=== PATIENT | female | born 1985 | race Caucasian/White ===

== ENCOUNTER 2017-12-20 20:35 | Emergency (ER) | payer BC ==
[2017-12-20] MEDS ORDERED: AMOXICILLIN/POTASSIUM CLAV 875MG/125MG TABLET PO ONE (20:49)
[2017-12-20] MEDS ORDERED: IBUPROFEN 400 MG TABLET PO ONE (20:49)
--- NOTE | 2017-12-20 20:55 | Emergency Department Record ---
History of Present Illness - General Chief Complaint: Ankle/Foot Injury Stated Complaint: TOE INJURY Time Seen by Provider: 12/20/17 20:49 Source: Patient Mode of Arrival: Ambulatory Limitations: No limitations - History of Present Illness Initial Comments: 32 yo female presents to ED for evaluation of increased swelling and pain following injury 10 days ago. Patient reports that she "ran my big toe into the back of my 's boot" resulting in direct blow to the toe. Patient reports that she is concerned about possible infection following injury. Patient denies health problems at her baseline. MD Complaint: Foot injury Onset/Timin -: Days(s) Injury: Toes: Right Type of Injury: Blunt Place: Home Severity scale (1-10): 8 Improves With: Nothing Worsens With: Nothing Context: Walking Associated Symptoms: Swelling, Ambulatory - Related Data Home Medications Medication Instructions Recorded Confirmed Last Taken Sertraline HCl [Zoloft] 100 mg PO DAILY 12/20/17 12/20/17 Unknown Previous Rx's Medication Instructions Recorded Amoxicillin/Potassium Clav 1 tab PO BID #19 tab 12/20/17 [Augmentin 875-125 Tablet] Allergies Allergy/AdvReac Type Severity Reaction Status Date / Time No Known Drug Allergies Allergy Verified 11/01/16 17:27 Travel Screening - Travel/Exposure Within Last 30 Days Have you traveled within the last 30 days?: No - Travel/Exposure Within Last Year Have you traveled outside the [place] in the last year?: No - Additonal Travel Details Have you been exposed to anyone with a communicable illness?: No - Travel Symptoms Symptom Screening: None Review of Systems Constitutional: Denies: Chills, Fever, Malaise, Night sweats Eyes: Denies: Eye discharge, Eye pain ENT: Denies: Congestion, Ear pain, Epistaxis Respiratory: Denies: Cough, Dyspnea Cardiovascular: Denies: Chest pain, Dyspnea on exertion Endocrine: Denies: Fatigue, Heat or cold intolerance Gastrointestinal: Denies: Abdominal pain, Nausea, Vomiting Genitourinary: Denies: Incontinence, Retention Musculoskeletal: Reports: Arthralgia. Denies: Back pain, Gout Skin: Reports: Bruising. Denies: Change in color Neurological: Denies: Abnormal gait, Confusion, Headache, Seizure Psychiatric: Denies: Anxiety Hematological/Lymphatic: Denies: Anemia, Blood Clots Past Medical History - SOCIAL HISTORY Smoking Status: Former smoker Alcohol Use: None Drug Use: Heavy Drug Use Detail:: Marijuana - RESPIRATORY Hx Respiratory Disorders: No - CARDIOVASCULAR Hx Cardio Disorders: No - NEURO Hx Neuro Disorders: No - GI Hx GI Disorders: No - Hx Genitourinary Disorders: No - ENDOCRINE Hx Endocrine Disorders: No Hx Diabetes: Yes Comment:: gestational - MUSCULOSKELETAL Hx Musculoskeletal Disorders: No - PSYCH Hx Psych Problems: Yes Hx Depression: Yes - HEMATOLOGY/ONCOLOGY Hx Hematology/Oncology Disorders: No Family Medical History Any Significant Family History?: No Physical Exam - General General Appearance: Alert, Oriented x3, Cooperative, Mild distress Limitations: No limitations - Head Head exam: Atraumatic, Normocephalic, Normal inspection Head exam detail: negative: Abrasion, Contusion, Jiménez's sign, General tenderness, Hematoma, Laceration - Eye Eye exam: Normal appearance. negative: Conjunctival injection, Periorbital swelling, Periorbital tenderness, Scleral icterus - ENT Ear exam: negative: Auricular hematoma, Auricular trauma Nasal Exam: negative: Active bleeding, Discharge, Dried blood, Foreign body Mouth exam: negative: Drooling, Laceration, Muffled voice, Tongue elevation - Neck Neck exam: Normal inspection. negative: Meningismus, Tenderness - Respiratory Respiratory exam: Normal lung sounds bilaterally. negative: Rales, Respiratory distress, Rhonchi, Stridor - Cardiovascular Cardiovascular Exam: Regular rate, Normal rhythm, Normal heart sounds - GI/Abdominal GI/Abdominal exam: Soft. negative: Rebound, Rigid, Tenderness - Rectal Rectal exam: Deferred - exam: Deferred - Extremities Extremities exam: Tenderness, Other (STS to the tuft of the right great toe, mild ecchymosis below the nail, no deformity noted. Mild erythema to the tuft noted as well. No significant subungal hematoma noted. No abscess is noted to the tuft or nail-fold on examination.). negative: Calf tenderness, Pedal edema - Back Back exam: Denies: CVA tenderness (R), CVA tenderness (L) - Neurological Neurological exam: Alert, Normal gait, Oriented X3 - Psychiatric Psychiatric exam: Normal affect, Normal mood - Skin Skin exam: Erythema. negative: Abrasion Type of lesion: negative: abrasion Course Vital Signs 12/20/17 12/20/17 20:38 20:39 Temperature 98 F 98 F Pulse Rate [ 73 Pulse Ox Probe] Respiratory 16 16 Rate Blood Pressure 116/74 [Left Arm] Pulse Ox 100 100 - Reevaluation(s) Reevaluation #1: 12/20/17 21:35 Right great toe: Possible small avulsion fracture of the plantar surface at the proximal distal phalanx Patient was updated on her radiology result, will place in post-op shoe with instructions to call her janitor helper (Dr. Mariee) for an appointment in 3- 5 days as directed. Patient appears stable for discharge with treatment for probable toe infection with Augmentin as well. Disposition Disposition: Discharge Clinical Impression: Toe infection, Avulsion fracture Disposition: Home, Self-Care Condition: (2) Stable Instructions: [facility] (ED) Additional Instructions: Return to ED if your symptoms worsen or if you have any concerns. Augmentin as directed. Follow-up with Dr. Mariee in 3-5 days as directed. Post-op shoe as directed. Prescriptions: Amoxicillin/Potassium Clav [Augmentin 875-125 Tablet] 1 tab PO BID #19 tab Forms: Patient Portal Access Time of Disposition: 21:35 Quality - Quality Measures Quality Measures: N/A - Blood Pressure Screening Does Patient Have Any of the Following: No Blood Pressure Classification: Normal BP Reading Systolic Measurement: 116 Diastolic Measurement: 74 Screening for High Blood Pressure: < Normal BP, F/U Not Required > [G8783]
--- NOTE | 2017-12-21 14:59 | RADIOLOGY REPORT ---
EXAM: RIGHT GREAT TOE HISTORY: PATIENT SLID INTO HER 'S BOOT WHILE RUNNING ACROSS THE FLOOR TEN DAYS AGO AND THEN STUBBED THE SAME TOE MULTIPLE TIMES. PAIN IN RIGHT GREAT TOE. TECHNIQUE: Three views of the right great toe were obtained. Encounter: Initial. FINDINGS: There is moderate degenerative arthritis at the first MTP joint. On the lateral view there is a small calcification along the plantar surface of the base of the distal phalanx which could be a small avulsion fracture fragment. Elsewhere no appearance of the great toe identified to suggest a fracture. No dislocation evident. IMPRESSION: 1. DEGENERATIVE ARTHRITIS AT THE FIRST MTP JOINT. 2. SMALL CALCIFICATION ALONG THE PLANTAR SURFACE OF THE BASE OF THE DISTAL PHALANX MAY BE A SMALL AVULSION FRACTURE FRAGMENT AND CLINICAL CORRELATION TO POINT TENDERNESS IN THIS REGION SUGGESTED. JOB NUMBER: [id number] MTDD
== END 2017-12-20 21:46 | disposition home or self-care (01) ==
LOC: ER 20:35
DX: S92.421A Displaced fracture of distal phalanx of right great toe, initial encounter for closed fracture (principal); L03.031 Cellulitis of right toe; W22.8XXA Striking against or struck by other objects, initial encounter; Y92.009 Unspecified place in unspecified non-institutional (private) residence as the place of occurrence of the external cause; Z87.891 Personal history of nicotine dependence
CPT/HCPCS: 73660; 99283